=== PATIENT | female | born 1945 | race Caucasian/White ===

== ENCOUNTER 2019-02-08 08:57 | Inpatient (IN) | payer MEDICARE ==
[~2019-02-08] VITALS: Ht 165.1 cm; Wt 71.6 kg
[2019-02-08] VITALS (19 sets, daily range): BP systolic 105–139; BP diastolic 44–75
[~2019-02-08 08:57] MED LIST: ALPR-624 PO; CLOP75TA4 PO; GABA-532 PO; NAPR220C15 PO; QUET25TA PO; SIMV80TA2 PO; TRAM50TA2 PO; nitroPRUSSIDE in NS 100 ML IV PRN; phenylephrine inj 20 MG in normal saline 250ml IV soln 250 ML IV PRN
[2019-02-08] MEDS ORDERED: ringers solution, lacted 1,000 ML IV SCH ×2 (09:45→14:15)
[2019-02-08] MEDS ORDERED: cefazolin/dext.iso 2gm/100 ML IV ONE (09:45)
[2019-02-08] MEDS ORDERED: famotidine 20mg tablet PO ONE (09:45)
[2019-02-08 10:43] LABS: BASOPHILS # (AUTO) 0.1 X10'3 (0-0.2); BASOPHILS % (AUTO) 0.8 % (0-1); EOSINOPHILS # (AUTO) 0.2 X10'3 (0-0.9); EOSINOPHILS % (AUTO) 2.2 % (0-6); LYMPHOCYTES # (AUTO) 1.1 X10'3 (1.1-4.8); LYMPHOCYTES % (AUTO) 14.4 % (21-51); MEAN CORPUSCULAR HEMOGLOBIN 32.4 PG (27.0-31.0); MEAN CORPUSCULAR HGB CONC 33.7 g/dL (33.0-36.5); MEAN CORPUSCULAR VOLUME 96.2 FL (78-98); MEAN PLATELET VOLUME 7.4 FL (7.4-10.4); MONOCYTES # (AUTO) 0.8 X10'3 (0-0.9); MONOCYTES % (AUTO) 9.7 % (2-12); NEUTROPHILS # (AUTO) 5.8 X10'3 (1.8-7.7); NEUTROPHILS % (AUTO) 72.9 % (42-75); PRE OP HEMOGLOBIN 14.5 g/dL (12.0-16.0); PRE OP PLATELET COUNT 396 X10'3 (140-440); RED BLOOD COUNT 4.47 X10'6 (4.20-5.60); RED CELL DISTRIBUTION WIDTH 14.9 % (11.5-14.5)
[2019-02-08 10:45] LABS: CLARITY,URINE CLEAR (Clear); COLOR,URINE YELLOW (Yellow); GLUCOSE, URINE NEGATIVE (Neg); KETONES,URINE TRACE mg/dl (Neg); LEUKOCYTE ESTERASE ,URINE SMALL (Neg); NITRITES, URINE NEGATIVE (Neg); OCCULT BLOOD,URINE NEGATIVE (Neg); PH,URINE 5.5 (4.8-8.0); PROTEIN,URINE TRACE mg/dl (Neg); UROBILINOGEN,URINE 0.2 E.U/dL (0.2-1.0)
[2019-02-08 10:51] LABS: UA COLLECTION TYPE VOIDED
[2019-02-08 10:52] LABS: RBC,URINE NONE SEEN /HPF (0-2); WBC,URINE 0-4 /HPF (0-4)
[2019-02-08 10:53] LABS: BACTERIA,URINE FEW /HPF (Neg); MUCUS STRANDS FEW /LPF (Neg); SQUAMOUS EPITHELIAL CELL,UR FEW /LPF (FEW)
[2019-02-08 10:58] LABS: ALBUMIN 3.9 G/DL (3.4-5.0); ALBUMIN/GLOBULIN RATIO 1.1 (1.1-1.5); ALKALINE PHOSPHATASE 63 IU/L (46-116); BLOOD UREA NITROGEN 16 MG/DL (7-18); BUN/CREATININE RATIO 19.8 (6.6-38.0); CALCIUM 9.1 MG/DL (8.5-10.1); CHLORIDE 107 MMOL/L (99-107); CREATININE 0.81 MG/DL (0.40-0.90); PRE OP ALT 39 U/L (30-65); PRE OP ANION GAP 8 (8-16); PRE OP AST 25 U/L (10-37); PRE OP BILIRUB, TOTAL 0.5 MG/DL (0.0-1.0); PRE OP GLUCOSE 116 MG/DL (70-104); PRE OP POTASSIUM 4.2 MMOL/L (3.4-5.1); PRE OP SODIUM 145 MMOL/L (135-145); TOTAL CARBON DIOXIDE 30.5 MMOL/L (24-32); TOTAL PROTEIN 7.5 G/DL (6.4-8.2); eGFR 70 ML/MIN
[2019-02-08] MEDS ORDERED: heparin 10,000 units/1 ML INJ ONE (11:58)
[2019-02-08] MEDS ORDERED: hydrALAZINE 20mg/ml inj. IV ONE (12:00)
[2019-02-08] MEDS ORDERED: sevoflurane 250ml liquid IH ONE (12:00)
[2019-02-08] MEDS ORDERED: nitroGLYCERIN in D5W 50mg/250ml (Tridil) infusion IV ONE (12:00)
[2019-02-08] MEDS ORDERED: fentaNYL /PF 50mcg/ml 5ml ampule ONE (12:02)
[2019-02-08] MEDS ORDERED: LIDOcaine 2% (20mg/ml) 5ml vial ONE (12:03)
[2019-02-08] MEDS ORDERED: rocuronium 10mg/ml inj IV ONE (12:03)
[2019-02-08] MEDS ORDERED: dexamethasone sod phosphate 4mg/ml inj. ONE (13:39)
[2019-02-08] MEDS ORDERED: ondansetron/PF 4mg/2ml inj ONE (13:39)
[2019-02-08] MEDS ORDERED: etomidate 2mg/ml inj. ONE (13:39)
[2019-02-08] MEDS ORDERED: neostigmine methylsulfate 1 MG/ML 10ml vial ONE (13:39)
[2019-02-08] MEDS ORDERED: glycopyrrolate 0.2mg/ml inj ONE (13:39)
--- NOTE | 2019-02-08 14:00 | NUR ---
Received from OR via ICU BED, accompanied by Anesthesiologist YANICK and report given by Anesthesiolgist. PATIENT WITH 18G PIV IN LEFT UE RUNNING NIPRIDE AT THIS TIME. VSChao. GABY DELONG. LEFT NECK DRESSING WITH 2 SPOTS OF BLOOD BUT CONTAINED WITHIN DRESSING. SCDS DONNED WELL TOÑA HICKEY. LR RUNNING AT 100 WELL VIA PIV. ART LINE IN RIGHT WRIST PRESENT. Addendum: 02/08/19 at 1417 by Walt West RN, RN Amended: Links added.
[2019-02-08] MEDS ORDERED: ondansetron/PF 4mg/2ml inj IV PRN ×2 (14:10→14:15)
[2019-02-08] MEDS ORDERED: morphine 4 MG/ML inj SYRINge IV PRN (14:15)
[2019-02-08] MEDS ORDERED: HYDROmorphone inj. 0.5 MG/0.5 ML DISP.SYRIN IV PRN (14:15)
[2019-02-08] MEDS ORDERED: morphine 4 MG/ML inj SYRINge ONE (14:18)
[2019-02-08] MEDS ORDERED: morphine 4 MG/ML inj SYRINge IV ONE (14:18)
--- NOTE | 2019-02-08 15:00 | NUR ---
ALL CRITERIA FOR TRANSFER TO THE ICU HAS BEEN ACHIEVED. VSS. BED LOW, CALL LIGHT AND VS. SET IN PLACE. RN PRESENT TO ACCEPT CARE. PATIENT RESTING COMFORTABLY IN BED. 2 BAGS OF BELONGINGS SENT WITH PATIENT WELL GLASSES IN A CASE (MAROON COLORED CASE)AT BEDSIDE. DRESSINGS CDI. RYAN TEMPLETON PRESENT TO ACCEPT CARE. PATIENT VSS. C.O. HEADACHE UPON ARRIVAL. NEUROLOGICALLY INTACT. CARE ASSUMED BY RYAN TEMPLETON. Addendum: 02/08/19 at 1519 by Walt Scales - RYAN DAVIS Amended: Links added.
--- NOTE | 2019-02-08 15:00 | NUR ---
Patient to room on [facility] accompanied by Macie Godoy carotid incision site two small dots of blood on dressing, JOSEFINA drain in place with 20ml of output, neuro checked all facilities intact, patients only compliant is pain, Walt mediated her before leaving. Vital signs stable will continue to monitor
--- NOTE | 2019-02-08 15:13 | NUR ---
132 BLOOD GLUCOSE IN RR Addendum: 02/08/19 at 1519 by Walt West RN RN Amended: Links added.
[2019-02-08] MEDS: HYDROcodone/acetaminophen 5mg/325mg tablet PO PRN (16:25)
[2019-02-08] MEDS: morphine 2 MG/ML inj. syringe IV PRN ×2 (17:41→21:59)
--- NOTE | 2019-02-08 18:31 | NUR ---
Called Dr Chisholm [phone] to clarify orders and inform him of the patients 03/26 headache. He ordered 2mg morphine Q4 PRN, he also stated to D/C plavix I also obtained parameters for the nipride, he stated to keep the SBP between 120-150. No other new orders at this time
--- NOTE | 2019-02-08 18:34 | NUR ---
Problems reprioritized. Patient report given, questions answered & plan of care reviewed with Chiki DAVIS.
[2019-02-09] VITALS (21 sets, daily range): BP systolic 116–165; BP diastolic 61–97
[2019-02-09] MEDS: morphine 2 MG/ML inj. syringe IV PRN ×2 (02:27→08:38)
[2019-02-09 03:14] LABS: ALBUMIN 3.3 G/DL (3.4-5.0); ANION GAP 10 (8-16); BLOOD UREA NITROGEN 10 MG/DL (7-18); BUN/CREATININE RATIO 13.7 (6.6-38.0); CALCIUM 8.7 MG/DL (8.5-10.1); CHLORIDE 108 MMOL/L (99-107); CREATININE 0.73 MG/DL (0.40-0.90); GLUCOSE 150 MG/DL (70-104); POTASSIUM 4.1 MMOL/L (3.5-5.1); SODIUM 143 MMOL/L (135-145); eGFR 78 ML/MIN
[2019-02-09 03:27] LABS: BASOPHILS % (AUTO) 0.1 % (0-1); EOSINOPHILS % (AUTO) 0 % (0-6); HEMATOCRIT 38.1 % (35.0-45.0); HEMOGLOBIN 12.4 g/dl (12.0-16.0); LYMPHOCYTES # (AUTO) 0.6 X10'3 (1.1-4.8); LYMPHOCYTES % (AUTO) 3.8 % (21-51); MEAN CORPUSCULAR HEMOGLOBIN 31.6 PG (27.0-31.0); MEAN CORPUSCULAR HGB CONC 32.6 g/dL (33.0-36.5); MEAN PLATELET VOLUME 7.8 FL (7.4-10.4); MONOCYTES % (AUTO) 6.8 % (2-12); NEUTROPHILS # (AUTO) 13.2 X10'3 (1.8-7.7); NEUTROPHILS % (AUTO) 89.3 % (42-75); PLATELET COUNT 426 X10'3 (140-440); RED BLOOD COUNT 3.93 X10'6 (4.20-5.60); RED CELL DISTRIBUTION WIDTH 14.7 % (11.5-14.5); WHITE BLOOD COUNT 14.8 X10'3 (4.5-11.0)
--- NOTE | 2019-02-09 06:54 | NUR ---
Patient in room CICU 2007. I have received report from Chiki DAVIS and had the opportunity to ask questions and assume patient care.
--- NOTE | 2019-02-09 11:47 | NUR ---
RIGHT RADIAL ARTERIAL LINE DC'D, PRESSURE HELD FOR 5 MINUTES AND DRESSING APPLIED. JOSEFINA DRAIN REMOVED FROM LEFT NECK AND DRESSING APPLIED. PER DR. HEATH'S ORDER.
[2019-02-09] MEDS: HYDROcodone/acetaminophen 5mg/325mg tablet PO PRN ×2 (13:34→22:58)
--- NOTE | 2019-02-09 18:30 | NUR ---
Patient in room CICU 2007. I have received report from Ben DAVIS and had the opportunity to ask questions and assume patient care.
--- NOTE | 2019-02-09 18:33 | NUR ---
Problems reprioritized. Patient report given, questions answered & plan of care reviewed with JOSEPHINE DAVIS.
--- NOTE | 2019-02-09 20:49 | NUR ---
Pt arrived to room 340B via W/C, pt is mobile and talking on the phone. Addendum: 02/09/19 at 2049 by Sheela Zamarripa RN Amended: Links added.
--- NOTE | 2019-02-09 21:15 | NUR ---
Pt outside of room with pants half way off attempting to put on alexandere, whiting, upset that she's getting a male roommate and that her will also be very upset. It was explained to pt that there is no male patient staying, and that the man she's upset about is of new roommate who will be going home, pt stated that she's not racist. Nurse talked to pt to help clear up misunderstanding. Addendum: 02/10/19 at 0425 by Sheela Zamarripa RN Amended: Links added.
--- NOTE | 2019-02-09 22:30 | NUR ---
Into check on patient, pt stated she took out her IV stating "I just couldn't handle it anymore so I just took it out". Pt was educated on having RN take care of her IV and that if she needs anything she needs to let someone know. Pt upset at education. Addendum: 02/10/19 at 0417 by Sheela Zamarripa RN Amended: Links added.
[2019-02-10] VITALS: BP 153/76
--- NOTE | 2019-02-10 04:15 | NUR ---
Cement Mixer told nurse that pt has refused labs and is upset, yelling at her stating, "I don't know what you're doing, I've never had this happen to me", Pt wanting to be left alone, but stating "well I'm already up now" walking in the hanks following the chief clinical officer. Addendum: 02/10/19 at 0425 by Sheela Zamarripa RN Amended: Links added.
[2019-02-10 04:41] LABS: BASOPHILS # (AUTO) 0.1 X10'3 (0-0.2); BASOPHILS % (AUTO) 0.5 % (0-1); EOSINOPHILS # (AUTO) 0.1 X10'3 (0-0.9); EOSINOPHILS % (AUTO) 1.1 % (0-6); HEMATOCRIT 38.8 % (35.0-45.0); HEMOGLOBIN 12.8 g/dl (12.0-16.0); LYMPHOCYTES # (AUTO) 1.9 X10'3 (1.1-4.8); LYMPHOCYTES % (AUTO) 18.9 % (21-51); MEAN CORPUSCULAR HEMOGLOBIN 31.9 PG (27.0-31.0); MEAN CORPUSCULAR VOLUME 96.6 FL (78-98); MEAN PLATELET VOLUME 7.4 FL (7.4-10.4); MONOCYTES # (AUTO) 0.9 X10'3 (0-0.9); MONOCYTES % (AUTO) 9.3 % (2-12); NEUTROPHILS # (AUTO) 7.1 X10'3 (1.8-7.7); NEUTROPHILS % (AUTO) 70.2 % (42-75); PLATELET COUNT 400 X10'3 (140-440); RED BLOOD COUNT 4.02 X10'6 (4.20-5.60); RED CELL DISTRIBUTION WIDTH 14.6 % (11.5-14.5); WHITE BLOOD COUNT 10.1 X10'3 (4.5-11.0)
--- NOTE | 2019-02-10 06:18 | NUR ---
Patient in room [facility] 340. I have received report from RYAN Coker and had the opportunity to ask questions and assume patient care.
--- NOTE | 2019-02-10 06:18 | NUR ---
Problems reprioritized. Patient report given, questions answered & plan of care reviewed with Ana Rosa DAVIS. Addendum: 02/10/19 at 0619 by Sheela Zamarripa RN Amended: Links added.
[2019-02-10 07:00] VITALS: BP 179/98
[2019-02-10] MEDS ORDERED: aspirin 81mg tablet.DR PO SCH (08:00)
[2019-02-10 08:45] VITALS: BP 167/93
[2019-02-10] MEDS: HYDROcodone/acetaminophen 5mg/325mg tablet PO PRN (09:19)
[2019-02-10] MEDS ORDERED: hyDRALAzine 10mg tablet PO PRN (10:15)
[2019-02-10 11:30] VITALS: BP 144/71
== END 2019-02-10 15:45 | disposition home or self-care (01) | DRG 37 ==
LOC: PAS IN 08:57 → EDSTATUS 11:45 → CICU 2S 15:02 → SUR 3N 02-09 21:05
PROVIDERS: ADMIT Surgery; ATTEND Surgery
PROC: 03UN0KZ Supplement Left External Carotid Artery with Nonautologous Tissue Substitute, Open Approach (ICD-10-PCS; 2019-02-08)
PROC: 03CN0Z6 (ICD-10-PCS; principal; 2019-02-08 12:00)
DX: I65.22 Occlusion and stenosis of left carotid artery (principal); I63.9 Cerebral infarction, unspecified; E78.5 Hyperlipidemia, unspecified; G83.24 Monoplegia of upper limb affecting left nondominant side; R47.01 Aphasia; F41.9 Anxiety disorder, unspecified; G89.29 Other chronic pain; M16.10 Unilateral primary osteoarthritis, unspecified hip; F17.200 Nicotine dependence, unspecified, uncomplicated; Z82.49 Family history of ischemic heart disease and other diseases of the circulatory system; Z79.899 Other long term (current) drug therapy
CPT/HCPCS: 36415; 71045; 80048; 80053; 81001; 82948; 85025; 85610; 85730; 86885; 86900; 86901; 86920; 87081; 87088; 95813; 95816; A4618; A7000; C1768; G0378; J0360; J1100; J1170; J1644; J2001; J2270; J2370; J2405; J2710; J3010; J3490; J7040; J7050; J7120

== ENCOUNTER 2021-03-31 10:47 | Inpatient (IN) | payer MEDICARE ==
[2021-03-31] VITALS (16 sets, daily range): BP systolic 106–151; BP diastolic 69–98
[~2021-03-31] VITALS: Ht 165.1 cm; Wt 61.8 kg
[~2021-03-31 10:47] MED LIST changes: +ASPI-529 PO; +ATOR40TA PO; -CLOP75TA4 PO; +LEVO75TA PO; -NAPR220C15 PO; -SIMV80TA2 PO; +VANCOMYCIN INJ 1000 MG in NORMAL SALINE 250ml IV.SOLN IV ONE; +acetaminophen 325mg tablet PO ONE; +cefazolin/dext.iso 2gm/100ml IV ONE; +celeCOXIB 100mg capsule PO ONE; +famotidine 20mg tablet PO ONE; +gabapentin 300mg capsule PO ONE; +metoclopramide 5 mg/ml inj IV ONE; -nitroPRUSSIDE in NS 100 ML IV PRN; +oxyCODONE SR 10mg (sust. release) tab -2 tabs (20mg) PO ONE; -phenylephrine inj 20 MG in normal saline 250ml IV soln 250 ML IV PRN; +tranexamic acid 1gm/0.7% sal. 100 ML IV ONE
[2021-03-31] MEDS ORDERED: oxyCODONE SR 10mg (sust. release) tab PO ONE (11:50)
[2021-03-31] MEDS ORDERED: magnesium hydroxide 30ml (MOM) UD suspension PO PRN (12:00)
[2021-03-31] MEDS ORDERED: HYDROmorphone inj. 0.5 MG/0.5 ML DISP.SYRIN IV PRN (12:00)
[2021-03-31] MEDS ORDERED: ALPRAZolam 0.5mg tablet PO PRN (12:00)
[2021-03-31] MEDS ORDERED: HYDROcodone/acetaminophen 10/325mg tab PO PRN (12:00)
[2021-03-31] MEDS: potassium cl 20mEq in 1/2 NS 1,000 ML IV SCH ×2 (12:00→21:04)
[2021-03-31] MEDS ORDERED: ondansetron/PF 4mg/2ml inj IV PRN ×2 (12:00→14:50)
[2021-03-31] MEDS ORDERED: diphenhydrAMINE 25mg capsule PO PRN ×2 (12:00)
[2021-03-31] MEDS ORDERED: bisacodyl 10mg suppository rectal RC PRN (12:00)
[2021-03-31] MEDS ORDERED: tranexamic acid inj. 600 MG in normal saline 100ml IV soln 100 ML IV ONE ×2 (12:00→19:15)
[2021-03-31] MEDS ORDERED: acetaminophen 325mg tablet PO PRN (12:00)
[2021-03-31] MEDS: gabapentin 300mg capsule PO SCH ×2 (12:15→20:45)
[2021-03-31] MEDS: ringers solution, lacted 1,000 ML IV SCH ×2 (12:17→17:39)
[2021-03-31] MEDS ORDERED: midazolam 1 mg/ML 2ml injection IV ONE ×2 (13:25→14:10)
[2021-03-31] MEDS ORDERED: epiNEPHrine 1 mg/ml inj ONE (14:25)
[2021-03-31] MEDS ORDERED: ketorolac trometh. 30mg/ml inj. ONE (14:25)
[2021-03-31] MEDS ORDERED: ROPIVAcaine 0.5% (5mg/ml) 30ml vial ONE (14:25)
[2021-03-31] MEDS ORDERED: vancomycin 1,000mg inj ONE (14:26)
[2021-03-31] MEDS ORDERED: cloNIDine hcl/PF 100mcg/ml inj ONE (14:26)
[2021-03-31] MEDS ORDERED: ringers solution, lacted 1,000 ML IV SCH (14:50)
[2021-03-31] MEDS ORDERED: HYDROmorphone/PF 0.2 MG/ML SYRINGE IV PRN (14:50)
[2021-03-31] MEDS ORDERED: morphine 2 MG/ML inj. syringe IV PRN (14:50)
[2021-03-31] MEDS ORDERED: sevoflurane 250ml liquid IH ONE (14:50)
[2021-03-31] MEDS ORDERED: fentaNYL/PF 50MCG/1 ML 2ML syringe ONE (14:52)
[2021-03-31] MEDS ORDERED: midazolam 1 mg/ML 2ml injection ONE (14:52)
[2021-03-31] MEDS ORDERED: propofol inj 20 ML IV ONE (15:43)
[2021-03-31] MEDS ORDERED: LIDOcaine 1%/PF 5ML 10 MG/ML VIAL ONE ×2 (15:43)
[2021-03-31] MEDS ORDERED: dexamethasone sod phosphate 4mg/ml inj. ONE (15:50)
[2021-03-31] MEDS ORDERED: diphenhydrAMINE 50 mg/ml inj ONE (15:50)
[2021-03-31] MEDS ORDERED: ondansetron/PF 4mg/2ml inj ONE (15:50)
[2021-03-31] MEDS ORDERED: ceFAZolin/D5W- 1GM premix 50 ML IV SCH (16:00)
--- NOTE | 2021-03-31 16:06 | NUR ---
ASSUME CARE PT AWAKE DENIES PAIN VSS DRESSING TO LEFT KNEE CDI, WITH YOJANA DRAIN IN PLACE. KNEE BRACE TO KNEE INTACT WITH ICE TO SURGERY SITE. IV TO L ARM Addendum: 03/31/21 at 1628 by Annika Hernandez RN Amended: Links added.
--- NOTE | 2021-03-31 16:33 | NUR ---
PT MORE AWAKE ALERT VSS NO DISTRESS BRIDGETTE POS SPINAL LEVEL L3 Addendum: 03/31/21 at 1634 by Annika Hernandez RN Amended: Links added.
--- NOTE | 2021-03-31 16:45 | NUR ---
Patient in room [facility] 348. I have received report from Annika Dutton RN and had the opportunity to ask questions and assume patient care.
--- NOTE | 2021-03-31 17:00 | NUR ---
Patient made familiar with room at time she made it to the floor, Patient is alert and oriented complained of being cold but we gave two warm blankets before she was set up on vitals, maria guadalupe dressing clean dry and intact. Patient has no feeling from waist down. Call light was made accessible at this time and patient family was in room at this time. Patient doing well.
[2021-03-31] MEDS ORDERED: ALPRAZolam 0.25mg tablet PO PRN (18:18)
--- NOTE | 2021-03-31 18:42 | NUR ---
I have received report from RYAN Meehan and had the opportunity to ask questions and assume patient care.
--- NOTE | 2021-03-31 18:49 | NUR ---
Problems reprioritized. Patient report given, questions answered & plan of care reviewed with Marcio DAVIS.
--- NOTE | 2021-03-31 19:25 | NUR ---
Tranaxemic was due at 1900 Pharmacy put in the wrong time for 1200. I scanned the 1200 medication because that was the one that was showing on eMAR at the time. Pharmacy came up with a new label after I scanned the medication but we decided not to scan the new label in order to make it look like the medication was not given twice. I put IV infusing once the correct time showed up for the medication
[2021-03-31] MEDS ORDERED: vancomycin/NS 1 GM ADD-VANTAGE 250 ML IV SCH (20:00)
[2021-03-31] MEDS: sennosides 8.6mg tablet PO SCH (20:45)
[2021-03-31] MEDS: aspirin 81mg, enteric-coated 1 TAB TABLET.DR PO SCH (20:45)
[2021-03-31] MEDS: ascorbic acid 500mg tablet PO SCH (20:46)
[2021-03-31] MEDS: levoTHYROXINE 25mcg tablet PO SCH (20:46)
[2021-03-31] MEDS: QUEtiapine 25mg tablet PO SCH (20:47)
[2021-03-31] MEDS: atorvastatin 20mg tablet PO SCH (20:47)
[2021-03-31] MEDS: HYDROcodone/acetaminophen 10/325mg tab PO PRN (20:51)
[2021-04-01] VITALS: BP 114/76
[2021-04-01] MEDS: ceFAZolin/D5W- 1GM premix 50 ML IV SCH ×2 (00:19→09:42)
[2021-04-01 04:00] VITALS: BP 113/69
[2021-04-01] MEDS: potassium cl 20mEq in 1/2 NS 1,000 ML IV SCH ×2 (04:00→08:31)
[2021-04-01] MEDS: HYDROmorphone 1 mg/ml syringe IV PRN ×2 (05:06→09:46)
--- NOTE | 2021-04-01 06:02 | NUR ---
Problems reprioritized. Patient report given, questions answered & plan of care reviewed with RYAN Ford.
[2021-04-01 06:36] LABS: BASOPHILS % (AUTO) 0.2 % (0-1); EOSINOPHILS % (AUTO) 0 % (0-6); HEMATOCRIT 32.7 % (35.0-45.0); HEMOGLOBIN 10.5 g/dl (12.0-16.0); LYMPHOCYTES # (AUTO) 0.5 X10'3 (1.1-4.8); MEAN CORPUSCULAR HEMOGLOBIN 30.6 PG (27.0-31.0); MEAN CORPUSCULAR VOLUME 95.5 FL (78-98); MEAN PLATELET VOLUME 7.3 FL (7.4-10.4); MONOCYTES # (AUTO) 1.2 X10'3 (0-0.9); MONOCYTES % (AUTO) 9.2 % (2-12); NEUTROPHILS # (AUTO) 11.5 X10'3 (1.8-7.7); NEUTROPHILS % (AUTO) 86.6 % (42-75); PLATELET COUNT 590 X10'3 (140-440); RED BLOOD COUNT 3.43 X10'6 (4.20-5.60); RED CELL DISTRIBUTION WIDTH 14.5 % (11.5-14.5); WHITE BLOOD COUNT 13.3 X10'3 (4.5-11.0)
--- NOTE | 2021-04-01 06:39 | NUR ---
Patient in room [facility] 348. I have received report from Marcio DAVIS and had the opportunity to ask questions and assume patient care.
[2021-04-01 07:05] LABS: ANION GAP 6 (8-16); CHLORIDE 109 MMOL/L (99-107); POTASSIUM 4.8 MMOL/L (3.5-5.1); SODIUM 142 MMOL/L (135-145); TOTAL CARBON DIOXIDE 27.2 MMOL/L (24-32)
[2021-04-01 08:00] VITALS: BP 147/86
[2021-04-01] MEDS: HYDROcodone/acetaminophen 10/325mg tab PO PRN (08:29)
[2021-04-01] MEDS: multivitamins, therapeutics tablet PO SCH (08:30)
[2021-04-01] MEDS: gabapentin 300mg capsule PO SCH ×3 (08:30→20:13)
[2021-04-01] MEDS: ascorbic acid 500mg tablet PO SCH ×2 (08:30→20:12)
--- NOTE | 2021-04-01 10:55 | NUR ---
Joint Surgery Consult: Pt s/p L hip surgery this admit PO regular diet pending. Noted pt confused this AM per surgeon note. Written high protein ed w/ RD contact information placed in pt chart. Addendum: 04/01/21 at [address] Amended: Links added.
[2021-04-01 11:00] VITALS: BP 121/66
[2021-04-01] MEDS: oxyCODONE/APAP 5-325mg tablet PO PRN ×3 (12:49→21:13)
[2021-04-01 18:00] VITALS: BP 139/75
--- NOTE | 2021-04-01 18:30 | NUR ---
Problems reprioritized. Patient report given, questions answered & plan of care reviewed with Marcio DAVIS.
--- NOTE | 2021-04-01 18:35 | NUR ---
I have received report from RYAN Ford and had the opportunity to ask questions and assume patient care.
[2021-04-01] MEDS: celeCOXIB 100mg capsule PO SCH (20:09)
[2021-04-01] MEDS: atorvastatin 20mg tablet PO SCH (20:10)
[2021-04-01] MEDS: aspirin 81mg, enteric-coated 1 TAB TABLET.DR PO SCH (20:11)
[2021-04-01] MEDS: sennosides 8.6mg tablet PO SCH (20:12)
[2021-04-01] MEDS: levoTHYROXINE 25mcg tablet PO SCH (20:12)
[2021-04-01] MEDS: QUEtiapine 25mg tablet PO SCH (20:13)
[2021-04-02] VITALS: BP 125/72
[2021-04-02] MEDS: oxyCODONE/APAP 5-325mg tablet PO PRN ×2 (05:56→10:44)
[2021-04-02 06:28] LABS: BASOPHILS % (AUTO) 0.3 % (0-1); EOSINOPHILS # (AUTO) 0.2 X10'3 (0-0.9); EOSINOPHILS % (AUTO) 2.1 % (0-6); HEMATOCRIT 29.8 % (35.0-45.0); LYMPHOCYTES # (AUTO) 1.3 X10'3 (1.1-4.8); LYMPHOCYTES % (AUTO) 16.2 % (21-51); MEAN CORPUSCULAR HEMOGLOBIN 31.9 PG (27.0-31.0); MEAN CORPUSCULAR HGB CONC 33.3 g/dL (33.0-36.5); MEAN CORPUSCULAR VOLUME 95.7 FL (78-98); MEAN PLATELET VOLUME 7.2 FL (7.4-10.4); MONOCYTES # (AUTO) 0.8 X10'3 (0-0.9); MONOCYTES % (AUTO) 10.7 % (2-12); NEUTROPHILS # (AUTO) 5.5 X10'3 (1.8-7.7); NEUTROPHILS % (AUTO) 70.7 % (42-75); PLATELET COUNT 479 X10'3 (140-440); RED BLOOD COUNT 3.12 X10'6 (4.20-5.60); RED CELL DISTRIBUTION WIDTH 14.6 % (11.5-14.5); WHITE BLOOD COUNT 7.8 X10'3 (4.5-11.0)
--- NOTE | 2021-04-02 06:34 | NUR ---
Problems reprioritized. Patient report given, questions answered & plan of care reviewed with RYAN Palafox.
--- NOTE | 2021-04-02 06:45 | NUR ---
Patient in room [facility] 348. I have received report from RYAN Buckley and had the opportunity to ask questions and assume patient care.
[2021-04-02 07:00] VITALS: BP 149/82
[2021-04-02] MEDS: celeCOXIB 100mg capsule PO SCH (08:45)
[2021-04-02] MEDS: gabapentin 300mg capsule PO SCH ×2 (08:45→13:45)
[2021-04-02] MEDS: ascorbic acid 500mg tablet PO SCH (08:45)
[2021-04-02] MEDS: multivitamins, therapeutics tablet PO SCH (08:45)
[2021-04-02 12:00] VITALS: BP 147/77
--- NOTE | 2021-04-02 14:30 | NUR ---
Pt discharged to home, with all belongings, in private vehicle accompanied by . Discharge instructions and medications reviewed. No new prescriptions ordered at this time. Pt instructed to follow up with Dr Rivera at scheduled appointment, and to watch for signs/symptoms of a blood clot and infection. Pt provided with knee immobilizer with instructions to wear for 3 months, as directed by Dr Rivera. Pt stated understanding and willingness to comply with discharge instructions. IV DC'd, cannula intact. Pt escorted to front lobby via wheelchair by PCT.
== END 2021-04-02 14:25 | disposition home or self-care (01) | DRG 470 ==
LOC: PAS 10:47 → SUR 3N 15:00 → UNDOADMIN 15:00 → PAS 18:00 → SUR 3N 18:00 → UNDOADMOB 04-02 05:25 → SUR 3N 04-02 05:25 → PAS 04-02 05:25 → SUR 3N 04-02 05:25 → UNDOADMIN 04-02 09:30
PROVIDERS: ADMIT Orthopaedic Surgery; ATTEND Orthopaedic Surgery
PROC: 0SRB06Z Replacement of Left Hip Joint with Oxidized Zirconium on Polyethylene Synthetic Substitute, Open Approach (ICD-10-PCS; principal; 2021-04-02)
DX: M16.12 Unilateral primary osteoarthritis, left hip (principal); D62 Acute posthemorrhagic anemia; Z79.899 Other long term (current) drug therapy
CPT/HCPCS: 36415; 72170; 80051; 82948; 84443; 85025; 86885; 86900; 86901; 93005; 97110; 97116; 97530; 97535; A7000; C1776; G0378; J0171; J0690; J0735; J1100; J1170; J1200; J1885; J2250; J2405; J2704; J2765; J2795; J3010; J3370; J3480; J7120

== ENCOUNTER 2021-04-05 10:26 | Emergency (ER) | payer MEDICARE ==
[~2021-04-05] VITALS: Ht 154.9 cm; Wt 140.0 kg
[~2021-04-05 10:26] MED LIST changes: -VANCOMYCIN INJ 1000 MG in NORMAL SALINE 250ml IV.SOLN IV ONE; -acetaminophen 325mg tablet PO ONE; -cefazolin/dext.iso 2gm/100ml IV ONE; -celeCOXIB 100mg capsule PO ONE; -famotidine 20mg tablet PO ONE; -gabapentin 300mg capsule PO ONE; -metoclopramide 5 mg/ml inj IV ONE; -oxyCODONE SR 10mg (sust. release) tab -2 tabs (20mg) PO ONE; -tranexamic acid 1gm/0.7% sal. 100 ML IV ONE
[2021-04-05] MEDS ORDERED: normal saline 1000ML IV soln IV ONE (10:40)
[2021-04-05 11:35] LABS: EOSINOPHILS # (AUTO) 0.3 X10'3 (0-0.9); HEMOGLOBIN 11.2 g/dl (12.0-16.0); MONOCYTES # (AUTO) 1.2 X10'3 (0-0.9); RED BLOOD COUNT 3.61 X10'6 (4.20-5.60)
[2021-04-05 11:37] LABS: BASOPHILS % (AUTO) 0.2 % (0-1); EOSINOPHILS % (AUTO) 2.6 % (0-6); HEMATOCRIT 34.5 % (35.0-45.0); LYMPHOCYTES # (AUTO) 0.8 X10'3 (1.1-4.8); LYMPHOCYTES % (AUTO) 6.5 % (21-51); MEAN CORPUSCULAR HEMOGLOBIN 30.9 PG (27.0-31.0); MEAN CORPUSCULAR HGB CONC 32.4 g/dL (33.0-36.5); MEAN CORPUSCULAR VOLUME 95.6 FL (78-98); MEAN PLATELET VOLUME 6.9 FL (7.4-10.4); MONOCYTES % (AUTO) 10.4 % (2-12); NEUTROPHILS # (AUTO) 9.5 X10'3 (1.8-7.7); NEUTROPHILS % (AUTO) 80.3 % (42-75); PLATELET COUNT 697 X10'3 (140-440); RED CELL DISTRIBUTION WIDTH 14.8 % (11.5-14.5); WHITE BLOOD COUNT 11.8 X10'3 (4.5-11.0)
[2021-04-05 11:51] LABS: ALANINE AMINOTRANSFERASE 34 U/L (12-78); ALBUMIN 2.7 G/DL (3.4-5.0); ALBUMIN/GLOBULIN RATIO 0.8 (1.1-1.5); ALKALINE PHOSPHATASE 111 IU/L (46-116); ANION GAP 5 (8-16); ASPARTATE AMINO TRANSFERASE 31 U/L (10-37); BILIRUBIN,TOTAL 0.9 MG/DL (0.1-1.0); BLOOD UREA NITROGEN 13 MG/DL (7-18); BUN/CREATININE RATIO 17.3 (6.6-38.0); CALCIUM 8.5 MG/DL (8.5-10.1); CHLORIDE 102 MMOL/L (99-107); CREATININE 0.75 MG/DL (0.40-0.90); GLUCOSE 130 MG/DL (70-104); POTASSIUM 4.9 MMOL/L (3.5-5.1); SODIUM 140 MMOL/L (135-145); TOTAL CARBON DIOXIDE 33.2 MMOL/L (24-32); TOTAL PROTEIN 6.3 G/DL (6.4-8.2); eGFR 76 ML/MIN
[2021-04-05 12:27] LABS: HYPOCHROMASIA 1+; POLYCHROMASIA 1+; STOMATOCYTES FEW
[2021-04-05 12:28] LABS: PLATELET ESTIMATE INCREASED
--- NOTE | 2021-04-05 14:30 | NUR ---
Brought in by EMS from home. S/P L total hip 5 days ago. Taking norco at home pain. Pt is confused. She does follow commands. Alert to self only.
[2021-04-05] MEDS ORDERED: iohexol 350MG/ML 100ml bottle IV ONE (14:38)
[2021-04-05 14:43] LABS: CLARITY,URINE SLIGHTLY CLOUDY (Clear); COLOR,URINE YELLOW (Yellow); PH,URINE 5.5 (4.8-8.0); UA COLLECTION TYPE STRAIGHT CATH
[2021-04-05 14:44] LABS: GLUCOSE, URINE NEGATIVE (Neg); KETONES,URINE TRACE mg/dl (Neg); LEUKOCYTE ESTERASE ,URINE NEGATIVE (Neg); NITRITES, URINE NEGATIVE (Neg); OCCULT BLOOD,URINE NEGATIVE (Neg); PROTEIN,URINE NEGATIVE (Neg); UROBILINOGEN,URINE 0.2 E.U/dL (0.2-1.0)
--- NOTE | 2021-04-05 14:45 | NUR ---
Tele Neuro visit was completed.
[2021-04-05 14:52] LABS: HYALINE CASTS 0-3 /LPF (NEGATIVE); MUCUS STRANDS MANY /LPF (Neg); SQUAMOUS EPITHELIAL CELL,UR FEW /LPF (FEW)
[2021-04-05 14:54] LABS: BACTERIA,URINE NONE SEEN /HPF (Neg); RBC,URINE 0-2 /HPF (0-2); RENAL CELLS, URINE FEW /HPF; TRANSITIONAL EPI CELLS,URINE FEW /HPF; WBC,URINE 0-4 /HPF (0-4)
[2021-04-05] MEDS: dextrose 5%-1/2 normal saline 1,000 ML IV SCH (15:25)
[2021-04-05] MEDS ORDERED: LEVO50TA8 PO (15:25)
[2021-04-05] MEDS ORDERED: acetaminophen 325mg tablet PO PRN ×2 (15:25)
[2021-04-05] MEDS ORDERED: magnesium hydroxide 30ml (MOM) UD suspension PO PRN (15:25)
[2021-04-05] MEDS ORDERED: morphine 2 MG/ML inj. syringe IV PRN ×2 (15:25)
[2021-04-05] MEDS ORDERED: ALPR0.252 PO (15:25)
[2021-04-05] MEDS ORDERED: mag hydrox/Alum hydrox/simeth 30ml oral suspension PO PRN (15:25)
[2021-04-05] MEDS ORDERED: ondansetron/PF 4mg/2ml inj IV PRN (15:25)
[2021-04-05] MEDS ORDERED: DULO30CA52 PO (15:34)
[2021-04-05] MEDS ORDERED: CELE-85 PO (15:34)
[2021-04-05] MEDS ORDERED: acetaminophen 1,000mg/100ml IV 100 ML IV STA (15:48)
--- NOTE | 2021-04-05 16:32 | NUR ---
Blakely removed due to aggitation. Purwick suction placed to catch urine.
[2021-04-05] MEDS ORDERED: ALPRAZolam 0.25mg tablet PO PRN (17:30)
[2021-04-05] MEDS: docusate sod 100mg capsule PO SCH (20:00)
--- NOTE | 2021-04-05 20:27 | NUR ---
ASSUMED CARE OF PT. PT PLACED IN BED 1.
[2021-04-05] MEDS ORDERED: gabapentin 300mg capsule PO SCH (21:00)
[2021-04-05] MEDS ORDERED: atorvastatin 20mg tablet PO SCH (21:00)
[2021-04-05] MEDS: celeCOXIB 100mg capsule PO SCH (21:44)
[2021-04-06] MEDS: dextrose 5%-1/2 normal saline 1,000 ML IV SCH ×2 (01:25→14:34)
--- NOTE | 2021-04-06 02:20 | NUR ---
PT'S MENTATION HAS IMPROVED. SHE IS AWAKE, ALERT AND ORIENTED X4. SHE DENIES ANY COMPLAINTS.
[2021-04-06] MEDS ORDERED: levoTHYROXINE 25mcg tablet PO SCH (08:00)
[2021-04-06] MEDS ORDERED: enoxaparin 40mg/0.4ml syringe SUBCUT SCH (08:00)
[2021-04-06] MEDS ORDERED: duloxetine 30mg CAPSULE.DR PO SCH (08:00)
[2021-04-06] MEDS: docusate sod 100mg capsule PO SCH (08:19)
[2021-04-06] MEDS: celeCOXIB 100mg capsule PO SCH (08:19)
[2021-04-06 08:54] LABS: BASOPHILS % (AUTO) 0.2 % (0-1); EOSINOPHILS # (AUTO) 0.4 X10'3 (0-0.9); EOSINOPHILS % (AUTO) 3.2 % (0-6); HEMATOCRIT 35.5 % (35.0-45.0); HEMOGLOBIN 11.7 g/dl (12.0-16.0); LYMPHOCYTES # (AUTO) 0.6 X10'3 (1.1-4.8); LYMPHOCYTES % (AUTO) 5.4 % (21-51); MEAN CORPUSCULAR HEMOGLOBIN 31.5 PG (27.0-31.0); MEAN CORPUSCULAR HGB CONC 33.1 g/dL (33.0-36.5); MEAN CORPUSCULAR VOLUME 95.2 FL (78-98); MEAN PLATELET VOLUME 6.8 FL (7.4-10.4); MONOCYTES # (AUTO) 1.2 X10'3 (0-0.9); NEUTROPHILS # (AUTO) 9.8 X10'3 (1.8-7.7); NEUTROPHILS % (AUTO) 81.2 % (42-75); PLATELET COUNT 599 X10'3 (140-440); RED BLOOD COUNT 3.73 X10'6 (4.20-5.60); RED CELL DISTRIBUTION WIDTH 14.8 % (11.5-14.5); WHITE BLOOD COUNT 12.1 X10'3 (4.5-11.0)
[2021-04-06 09:28] LABS: ALANINE AMINOTRANSFERASE 28 U/L (12-78); ALBUMIN 2.5 G/DL (3.4-5.0); ALBUMIN/GLOBULIN RATIO 0.7 (1.1-1.5); ALKALINE PHOSPHATASE 98 IU/L (46-116); ANION GAP 7 (8-16); ASPARTATE AMINO TRANSFERASE 29 U/L (10-37); BLOOD UREA NITROGEN 9 MG/DL (7-18); CALCIUM 8.3 MG/DL (8.5-10.1); CHLORIDE 102 MMOL/L (99-107); GLUCOSE 134 MG/DL (70-104); POTASSIUM 4.3 MMOL/L (3.5-5.1); SODIUM 140 MMOL/L (135-145); TOTAL CARBON DIOXIDE 30.7 MMOL/L (24-32); TOTAL PROTEIN 6.1 G/DL (6.4-8.2); eGFR > 90 ML/MIN
[2021-04-06 10:41] LABS: PLATELET ESTIMATE INCREASED; TOTAL CELLS COUNTED 100
[2021-04-06 10:42] LABS: HYPOCHROMASIA 1+; POLYCHROMASIA FEW; TOXIC GRANULATION 1+
[2021-04-06 10:43] LABS: HYPERSEGMENTED NEUTROPHILS FEW; TOXIC VACUOLATION FEW
--- NOTE | 2021-04-06 11:22 | NUR ---
Dr Dick notified of decreased oxygen saturation, orders noted in the computer.
[2021-04-06] MEDS ORDERED: furosemide 20 MG/2 ML vial IV ONE (11:25)
[2021-04-06] MEDS ORDERED: FURO-150 PO (11:58)
[2021-04-06] MEDS ORDERED: iohexol 350MG/ML 100ml bottle IV ONE (12:04)
[2021-04-06 15:30] VITALS: BP 165/90
--- NOTE | 2021-04-06 15:45 | NUR ---
Patient requires home O2 for discharge, patient does not have qualifing diagnosis for oxygen use, spoke with daughter Anne, agreeable to pay the cost of 100.00 a month for home O2, notified MD and ER staff
[2021-04-06] MEDS ORDERED: APIX5TAB3 PO (17:27)
== END 2021-04-06 17:47 | disposition home or self-care (01) ==
LOC: ER 10:27 → ED HOLD 15:25 → UNDOADMIN 15:25 → UNDODISIN 04-06 17:21
DX: G92 Toxic encephalopathy (principal); J96.01 Acute respiratory failure with hypoxia; J90 Pleural effusion, not elsewhere classified; I50.9 Heart failure, unspecified; E86.0 Dehydration; Z96.642 Presence of left artificial hip joint
CPT/HCPCS: 36415; 70450; 70496; 70498; 71045; 71275; 80053; 81001; 82140; 83605; 83880; 84145; 84484; 85007; 85008; 85025; 87040; 93005; 96361; 96365; 96366; 96372; 96375; 99285; J0131; J1940; J7030; Q9967; G0378; J1650

== ENCOUNTER 2021-05-12 11:29 | Inpatient (IN) | payer MEDICARE ==
[~2021-05-12] VITALS: Ht 165.1 cm; Wt 61.0 kg
[~2021-05-12 11:29] MED LIST changes: -ALPR-624 PO; +ALPR0.252 PO; +APIX5TAB3 PO; -ASPI-529 PO; +CELE-85 PO; +DULO30CA52 PO; +LEVO50TA8 PO; -LEVO75TA PO; -QUET25TA PO; -TRAM50TA2 PO
[2021-05-12] MEDS ORDERED: LIDOcaine 2% 10ml TOPICAL JELLY (Urojet) TP ONE (13:50)
--- NOTE | 2021-05-12 14:22 | NUR ---
DR. KRAUSE CALLED TO INFORM US OF LUNG NODULES AND RIGHT LOBE CONSOLIDATION, POSS PNEU. INFORMED HIM PT HAS HX OF THROAT AND TONGUE CA.
[2021-05-12] MEDS ORDERED: morphine 4 MG/ML inj SYRINge IV ONE (14:25)
[2021-05-12 14:28] LABS: BASOPHILS # (AUTO) 0.1 X10'3 (0-0.2); BASOPHILS % (AUTO) 0.6 % (0-1); EOSINOPHILS # (AUTO) 0.1 X10'3 (0-0.9); HEMATOCRIT 39.2 % (35.0-45.0); HEMOGLOBIN 12.6 g/dl (12.0-16.0); LYMPHOCYTES # (AUTO) 1.1 X10'3 (1.1-4.8); LYMPHOCYTES % (AUTO) 9.2 % (21-51); MEAN CORPUSCULAR HGB CONC 32.2 g/dL (33.0-36.5); MEAN CORPUSCULAR VOLUME 90.1 FL (78-98); MEAN PLATELET VOLUME 7.2 FL (7.4-10.4); MONOCYTES # (AUTO) 0.9 X10'3 (0-0.9); NEUTROPHILS # (AUTO) 10.2 X10'3 (1.8-7.7); NEUTROPHILS % (AUTO) 82.2 % (42-75); PLATELET COUNT 511 X10'3 (140-440); RED BLOOD COUNT 4.35 X10'6 (4.20-5.60); RED CELL DISTRIBUTION WIDTH 16.2 % (11.5-14.5); WHITE BLOOD COUNT 12.4 X10'3 (4.5-11.0)
[2021-05-12 14:31] LABS: ALANINE AMINOTRANSFERASE 18 U/L (12-78); ALBUMIN 3.5 G/DL (3.4-5.0); ALKALINE PHOSPHATASE 93 IU/L (46-116); ANION GAP 5 (8-16); ASPARTATE AMINO TRANSFERASE 15 U/L (10-37); BILIRUBIN,TOTAL 0.5 MG/DL (0.1-1.0); BLOOD UREA NITROGEN 14 MG/DL (7-18); BUN/CREATININE RATIO 19.4 (6.6-38.0); CALCIUM 9.6 MG/DL (8.5-10.1); CHLORIDE 106 MMOL/L (99-107); CREATININE 0.72 MG/DL (0.40-0.90); GLUCOSE 112 MG/DL (70-104); POTASSIUM 3.8 MMOL/L (3.5-5.1); SODIUM 143 MMOL/L (135-145); TOTAL CARBON DIOXIDE 31.9 MMOL/L (24-32); TOTAL PROTEIN 7.1 G/DL (6.4-8.2); eGFR 79 ML/MIN
[2021-05-12] MEDS: normal saline 1000ml 1,000 ML IV SCH ×2 (15:50→23:59)
[2021-05-12] MEDS ORDERED: potassium Cl 40MEQ/1/2NS 520ml 520 ML IV PRN ×2 (15:50)
[2021-05-12] MEDS ORDERED: ondansetron/PF 4mg/2ml inj IV PRN (15:50)
[2021-05-12] MEDS ORDERED: mag hydrox/Alum hydrox/simeth 30ml oral suspension PO PRN (15:50)
[2021-05-12] MEDS ORDERED: morphine 2 MG/ML inj. syringe IV PRN (15:50)
[2021-05-12] MEDS ORDERED: magnesium hydroxide 30ml (MOM) UD suspension PO PRN (15:50)
[2021-05-12] MEDS ORDERED: acetaminophen 325mg tablet PO PRN (15:50)
[2021-05-12] MEDS ORDERED: potassium Cl 20 mEq SR tablet PO PRN ×2 (15:50)
[2021-05-12 16:19] LABS: C-REACTIVE PROTEIN 0.17 MG/DL (0.0-0.5)
--- NOTE | 2021-05-12 16:45 | NUR ---
SPOKE WITH DR. BENSON. PT MAY HAVE REGULAR DIET FOR DINNER, THEN NPO AFTER MN.
[2021-05-12] MEDS: morphine 2 MG/ML inj. syringe IV PRN ×2 (18:15→23:58)
--- NOTE | 2021-05-12 18:30 | NUR ---
ASSUMED CARE OF PT. PT LYING ON BED. ANXIOUS TO GET A BED UPSTAIRS. OTHERWISE NO COMPLAINTS AT PRESENT.
[2021-05-12 18:50] LABS: CLARITY,URINE Cloudy (Clear); COLOR,URINE YELLOW (Yellow); GLUCOSE, URINE NEGATIVE (Neg); KETONES,URINE NEGATIVE (Neg); LEUKOCYTE ESTERASE ,URINE NEGATIVE (Neg); NITRITES, URINE NEGATIVE (Neg); OCCULT BLOOD,URINE NEGATIVE (Neg); PROTEIN,URINE 30 mg/dl (Neg); UA COLLECTION TYPE FOLEY CATH; UROBILINOGEN,URINE 0.2 E.U/dL (0.2-1.0)
[2021-05-12 19:01] LABS: STARCH,URINE MODERATE /HPF (NEGATIVE)
[2021-05-12 19:02] LABS: BACTERIA,URINE FEW /HPF (Neg); RBC,URINE 0-2 /HPF (0-2); SQUAMOUS EPITHELIAL CELL,UR FEW /LPF (FEW); WBC,URINE 0-4 /HPF (0-4)
[2021-05-12 19:03] LABS: AMORPHOUS URATES 3+
[2021-05-12] MEDS: gabapentin 300mg capsule PO SCH (21:00)
[2021-05-12] MEDS: atorvastatin 20mg tablet PO SCH (21:00)
[2021-05-12] MEDS: K and/or MAG REPLACEMENT MC SCH (22:23)
[2021-05-12] MEDS: docusate sod 100mg capsule PO SCH (22:27)
--- NOTE | 2021-05-12 23:08 | NUR ---
Patient from ER. Pt was brought up to the floor by MD before report received. Haily DAVIS then called to give report there after pt was brought to floor. I and had the opportunity to ask questions and assume patient care.
[2021-05-13] VITALS: BP 136/108
--- NOTE | 2021-05-13 06:08 | NUR ---
Problems reprioritized. Patient report given, questions answered & plan of care reviewed with Liliana DAVIS.
[2021-05-13 06:17] LABS: BASOPHILS # (AUTO) 0.1 X10'3 (0-0.2); BASOPHILS % (AUTO) 0.8 % (0-1); EOSINOPHILS # (AUTO) 0.2 X10'3 (0-0.9); EOSINOPHILS % (AUTO) 2.5 % (0-6); HEMATOCRIT 34.1 % (35.0-45.0); HEMOGLOBIN 11.1 g/dl (12.0-16.0); LYMPHOCYTES # (AUTO) 1.6 X10'3 (1.1-4.8); MEAN CORPUSCULAR HEMOGLOBIN 29.1 PG (27.0-31.0); MEAN CORPUSCULAR HGB CONC 32.6 g/dL (33.0-36.5); MEAN CORPUSCULAR VOLUME 89.5 FL (78-98); MEAN PLATELET VOLUME 7.2 FL (7.4-10.4); MONOCYTES # (AUTO) 0.7 X10'3 (0-0.9); MONOCYTES % (AUTO) 9.7 % (2-12); NEUTROPHILS # (AUTO) 4.7 X10'3 (1.8-7.7); PLATELET COUNT 454 X10'3 (140-440); RED CELL DISTRIBUTION WIDTH 16.3 % (11.5-14.5); WHITE BLOOD COUNT 7.2 X10'3 (4.5-11.0)
--- NOTE | 2021-05-13 07:12 | NUR ---
/Patient in room [facility] 347. I have received report from New DAVIS and had the opportunity to ask questions and assume patient care.
[2021-05-13 07:35] LABS: ALANINE AMINOTRANSFERASE 11 U/L (12-78); ALBUMIN 2.8 G/DL (3.4-5.0); ALBUMIN/GLOBULIN RATIO 0.8 (1.1-1.5); ALKALINE PHOSPHATASE 81 IU/L (46-116); ANION GAP 7 (8-16); ASPARTATE AMINO TRANSFERASE 16 U/L (10-37); BILIRUBIN,TOTAL 0.4 MG/DL (0.1-1.0); BLOOD UREA NITROGEN 9 MG/DL (7-18); BUN/CREATININE RATIO 13.8 (6.6-38.0); CALCIUM 8.9 MG/DL (8.5-10.1); CHLORIDE 108 MMOL/L (99-107); CREATININE 0.65 MG/DL (0.40-0.90); GLUCOSE 106 MG/DL (70-104); POTASSIUM 3.9 MMOL/L (3.5-5.1); SODIUM 143 MMOL/L (135-145); TOTAL CARBON DIOXIDE 27.8 MMOL/L (24-32); TOTAL PROTEIN 6.1 G/DL (6.4-8.2); eGFR 89 ML/MIN
[2021-05-13] MEDS: HYDROcodone/acetaminophen 5mg/325mg tablet PO PRN ×3 (07:42→21:30)
[2021-05-13] MEDS: duloxetine 30mg CAPSULE.DR PO SCH (07:43)
[2021-05-13] MEDS: docusate sod 100mg capsule PO SCH ×2 (07:44→20:00)
[2021-05-13] MEDS: levoTHYROXINE 25mcg tablet PO SCH (07:44)
[2021-05-13 08:00] VITALS: BP 182/102
[2021-05-13] MEDS: K and/or MAG REPLACEMENT MC SCH ×2 (08:00→20:00)
--- NOTE | 2021-05-13 09:47 | NUR ---
PAGER ID: [phone] MESSAGE: Liliana winn [phone] RE; [facility] 180/102, current BP 155/103. pt scheduled for surgery at 1530. thank you
[2021-05-13 11:04] VITALS: BP 156/90
[2021-05-13 14:13] VITALS: BP 167/113
[2021-05-13] MEDS: hydrALAZINE 20mg/ml inj. IV SCH ×2 (14:54→20:15)
[2021-05-13] MEDS: normal saline 1000ml 1,000 ML IV SCH (15:23)
[2021-05-13 18:00] VITALS: BP 136/89
--- NOTE | 2021-05-13 18:30 | NUR ---
Patient in room [facility] 347. I have received report from Liliana Michaud and had the opportunity to ask questions and assume patient care.
--- NOTE | 2021-05-13 18:44 | NUR ---
Problems reprioritized. Patient report given, questions answered & plan of care reviewed with malu winn.
[2021-05-13] MEDS: atorvastatin 20mg tablet PO SCH (20:17)
[2021-05-13] MEDS: gabapentin 300mg capsule PO SCH (20:18)
[2021-05-14] VITALS (21 sets, daily range): BP systolic 86–170; BP diastolic 40–101
[2021-05-14] MEDS: hydrALAZINE 20mg/ml inj. IV SCH ×4 (01:43→21:32)
[2021-05-14] MEDS: HYDROcodone/acetaminophen 5mg/325mg tablet PO PRN ×5 (01:45→22:20)
--- NOTE | 2021-05-14 06:30 | NUR ---
Problems reprioritized. Patient report given, questions answered & plan of care reviewed with Liliana DAVIS.
--- NOTE | 2021-05-14 06:41 | NUR ---
Patient in room [facility] 347. I have received report from malu winn and had the opportunity to ask questions and assume patient care.
[2021-05-14] MEDS: duloxetine 30mg CAPSULE.DR PO SCH (07:17)
[2021-05-14] MEDS: levoTHYROXINE 25mcg tablet PO SCH (07:17)
[2021-05-14] MEDS: normal saline 1000ml 1,000 ML IV SCH (07:19)
[2021-05-14] MEDS: docusate sod 100mg capsule PO SCH ×2 (07:19→21:10)
[2021-05-14] MEDS: K and/or MAG REPLACEMENT MC SCH ×2 (08:00→20:00)
[2021-05-14 08:19] LABS: BASOPHILS # (AUTO) 0.1 X10'3 (0-0.2); EOSINOPHILS # (AUTO) 0.2 X10'3 (0-0.9); EOSINOPHILS % (AUTO) 2.4 % (0-6); HEMATOCRIT 35.2 % (35.0-45.0); HEMOGLOBIN 11.5 g/dl (12.0-16.0); LYMPHOCYTES # (AUTO) 1.1 X10'3 (1.1-4.8); LYMPHOCYTES % (AUTO) 16.6 % (21-51); MEAN CORPUSCULAR HEMOGLOBIN 29.2 PG (27.0-31.0); MEAN CORPUSCULAR HGB CONC 32.6 g/dL (33.0-36.5); MEAN CORPUSCULAR VOLUME 89.7 FL (78-98); MEAN PLATELET VOLUME 7.5 FL (7.4-10.4); MONOCYTES # (AUTO) 0.6 X10'3 (0-0.9); NEUTROPHILS # (AUTO) 4.7 X10'3 (1.8-7.7); PLATELET COUNT 447 X10'3 (140-440); RED BLOOD COUNT 3.93 X10'6 (4.20-5.60); RED CELL DISTRIBUTION WIDTH 16.4 % (11.5-14.5); WHITE BLOOD COUNT 6.6 X10'3 (4.5-11.0)
[2021-05-14 08:47] LABS: ALANINE AMINOTRANSFERASE 12 U/L (12-78); ALBUMIN 2.8 G/DL (3.4-5.0); ALBUMIN/GLOBULIN RATIO 0.8 (1.1-1.5); ALKALINE PHOSPHATASE 70 IU/L (46-116); ANION GAP 8 (8-16); ASPARTATE AMINO TRANSFERASE 15 U/L (10-37); BILIRUBIN,TOTAL 0.4 MG/DL (0.1-1.0); BLOOD UREA NITROGEN 10 MG/DL (7-18); BUN/CREATININE RATIO 15.6 (6.6-38.0); CALCIUM 8.3 MG/DL (8.5-10.1); CHLORIDE 110 MMOL/L (99-107); CREATININE 0.64 MG/DL (0.40-0.90); GLUCOSE 94 MG/DL (70-104); SODIUM 145 MMOL/L (135-145); TOTAL CARBON DIOXIDE 27.2 MMOL/L (24-32); TOTAL PROTEIN 6.1 G/DL (6.4-8.2); eGFR > 90 ML/MIN
[2021-05-14] MEDS ORDERED: morphine 4 MG/ML inj SYRINge IV PRN (10:45)
[2021-05-14] MEDS ORDERED: ondansetron/PF 4mg/2ml inj IV PRN (10:45)
[2021-05-14] MEDS ORDERED: proCHLORperazine 10 MG/2 ml inj IV PRN (10:45)
[2021-05-14] MEDS ORDERED: ringers solution, lacted 1,000 ML IV SCH (10:45)
[2021-05-14] MEDS ORDERED: morphine 2 MG/ML inj. syringe IV PRN (10:45)
[2021-05-14] MEDS ORDERED: meperidine/PF 25mg/ml syringe IV PRN ×3 (10:45)
--- NOTE | 2021-05-14 11:12 | NUR ---
called and gave report to Paul DAVIS in Recovery
[2021-05-14] MEDS ORDERED: epiNEPHrine 1 mg/ml inj ONE (12:37)
[2021-05-14] MEDS ORDERED: ketorolac trometh. 30mg/ml inj. ONE (12:37)
[2021-05-14] MEDS ORDERED: tranexamic acid 100mg/ml inj. ONE (12:37)
[2021-05-14] MEDS ORDERED: ROPIVAcaine 0.5% (5mg/ml) 30ml vial ONE ×2 (12:38→13:31)
[2021-05-14] MEDS ORDERED: cloNIDine hcl/PF 100mcg/ml inj ONE (12:38)
[2021-05-14] MEDS ORDERED: vancomycin 1,000mg inj ONE (12:38)
[2021-05-14] MEDS ORDERED: neostigmine methylsulfate 1 MG/ML 10ml vial ONE (12:47)
[2021-05-14] MEDS ORDERED: fentaNYL/PF 50MCG/1 ML 2ML syringe ONE (12:52)
[2021-05-14] MEDS ORDERED: midazolam 1 mg/ML 2ml injection ONE (12:56)
[2021-05-14] MEDS ORDERED: ceFAZolin 1000mg inj ONE ×2 (13:34)
[2021-05-14] MEDS ORDERED: phenylephrine 10mg/ml inj. ONE (13:34)
[2021-05-14] MEDS ORDERED: albumin (Human) 5% 250ml 250 ML IV ONE (13:34)
[2021-05-14] MEDS ORDERED: LIDOcaine 1%/PF 5ML 10 MG/ML VIAL ONE (14:14)
--- NOTE | 2021-05-14 14:25 | NUR ---
Received from OR via BED IN STABLE CONDITION , accompanied by Anesthesiologist and MEATCUTTER report given by MEATCUTTER AND Anesthesiolgist. Addendum: 05/14/21 at 1454 by Minerva Leslie RN Amended: Links added.
--- NOTE | 2021-05-14 14:25 | NUR ---
DERMATOME LEVEL L1
--- NOTE | 2021-05-14 14:25 | NUR ---
DERMATOME LEVEL L1 Addendum: 05/14/21 at 1519 by Minerva Leslie RN Amended: Links added.
[2021-05-14] MEDS ORDERED: acetaminophen 1,000mg/100ml IV 100 ML IV ONE (14:26)
[2021-05-14] MEDS: morphine 2 MG/ML inj. syringe IV PRN (15:16)
--- NOTE | 2021-05-14 15:35 | NUR ---
PATIENT DISCHARGED FROM PACU IN STABLE CONDITION AFTER REPORT GIVEN TO RN TAKING OVER PATIENTS CARE. DERMATOME LEVELL3. PATIENT TRANSFERRED VIA BED TO ROOM 347A WITH KEN FRANCO AT BEDSIDE. Addendum: 05/14/21 at 1545 by Minerva Leslie RN Amended: Links added.
[2021-05-14] MEDS ORDERED: ketorolac tromethamine 15mg/ml inj. IV PRN (18:50)
--- NOTE | 2021-05-14 18:52 | NUR ---
Problems reprioritized. Patient report given, questions answered & plan of care reviewed with soto winn.
[2021-05-14] MEDS ORDERED: enoxaparin 40mg/0.4ml syringe SUBCUT SCH (20:00)
[2021-05-14] MEDS: acetaminophen 1,000mg/100ml IV 100 ML IV SCH ×2 (20:00→21:31)
[2021-05-14] MEDS: gabapentin 300mg capsule PO SCH (21:10)
[2021-05-14] MEDS: atorvastatin 20mg tablet PO SCH (21:11)
--- NOTE | 2021-05-14 22:09 | NUR ---
called dr calhoun to clarify lovenox order . instructed to hold lovenox tonight and start tomorrow
[2021-05-15] VITALS: BP 134/64
[2021-05-15] MEDS: ceFAZolin/D5W- 1GM premix 50 ML IV SCH ×2 (00:46→08:27)
[2021-05-15] MEDS: normal saline 1000ml 1,000 ML IV SCH (00:59)
[2021-05-15] MEDS: hydrALAZINE 20mg/ml inj. IV SCH ×2 (01:01→08:00)
[2021-05-15] MEDS: acetaminophen 1,000mg/100ml IV 100 ML IV SCH ×2 (02:00→08:29)
[2021-05-15] MEDS: HYDROcodone/acetaminophen 5mg/325mg tablet PO PRN ×2 (05:47→10:02)
--- NOTE | 2021-05-15 06:45 | NUR ---
Patient in room [facility] 347. I have received report from jaden winn and had the opportunity to ask questions and assume patient care.
[2021-05-15 07:17] LABS: BASOPHILS # (AUTO) 0.1 X10'3 (0-0.2); BASOPHILS % (AUTO) 0.7 % (0-1); EOSINOPHILS # (AUTO) 0.2 X10'3 (0-0.9); EOSINOPHILS % (AUTO) 2.1 % (0-6); HEMATOCRIT 31.1 % (35.0-45.0); HEMOGLOBIN 10.3 g/dl (12.0-16.0); LYMPHOCYTES # (AUTO) 0.6 X10'3 (1.1-4.8); LYMPHOCYTES % (AUTO) 6.8 % (21-51); MEAN CORPUSCULAR HEMOGLOBIN 29.1 PG (27.0-31.0); MEAN CORPUSCULAR VOLUME 88.2 FL (78-98); MEAN PLATELET VOLUME 7.5 FL (7.4-10.4); MONOCYTES # (AUTO) 0.8 X10'3 (0-0.9); MONOCYTES % (AUTO) 9.2 % (2-12); NEUTROPHILS % (AUTO) 81.2 % (42-75); PLATELET COUNT 481 X10'3 (140-440); RED BLOOD COUNT 3.53 X10'6 (4.20-5.60); WHITE BLOOD COUNT 8.6 X10'3 (4.5-11.0)
[2021-05-15 07:20] LABS: BILIRUBIN,TOTAL 0.5 MG/DL (0.1-1.0); BLOOD UREA NITROGEN 8 MG/DL (7-18); BUN/CREATININE RATIO 12.5 (6.6-38.0); CHLORIDE 108 MMOL/L (99-107); CREATININE 0.64 MG/DL (0.40-0.90); GLUCOSE 114 MG/DL (70-104); POTASSIUM 3.7 MMOL/L (3.5-5.1); SODIUM 143 MMOL/L (135-145); eGFR > 90 ML/MIN
[2021-05-15 07:25] LABS: ALANINE AMINOTRANSFERASE 14 U/L (12-78); ALBUMIN 2.7 G/DL (3.4-5.0); ALBUMIN/GLOBULIN RATIO 0.9 (1.1-1.5); ALKALINE PHOSPHATASE 64 IU/L (46-116); ANION GAP 8 (8-16); ASPARTATE AMINO TRANSFERASE 24 U/L (10-37); TOTAL PROTEIN 5.6 G/DL (6.4-8.2)
[2021-05-15 08:00] VITALS: BP 125/86
[2021-05-15] MEDS: K and/or MAG REPLACEMENT MC SCH (08:00)
[2021-05-15] MEDS: docusate sod 100mg capsule PO SCH (08:29)
[2021-05-15] MEDS: duloxetine 30mg CAPSULE.DR PO SCH (08:30)
[2021-05-15] MEDS: levoTHYROXINE 25mcg tablet PO SCH (08:30)
[2021-05-15 11:00] VITALS: BP 143/78
--- NOTE | 2021-05-15 13:03 | NUR ---
Patient discharged in stable condition to home with . Pt educated on post op hip precautions and follow up with Dr. Rivera. Iv removed, tip intact no complications. Belongings sent with pt.
== END 2021-05-15 12:59 | disposition home health service (06) | DRG 467 ==
LOC: ER 11:30 → ED HOLD 15:51 → SUR 3N 22:50
PROVIDERS: ADMIT Internal Medicine; ATTEND Internal Medicine
PROC: 0SRS0J9 Replacement of Left Hip Joint, Femoral Surface with Synthetic Substitute, Cemented, Open Approach (ICD-10-PCS; 2021-05-14)
PROC: 0SPB09Z Removal of Liner from Left Hip Joint, Open Approach (ICD-10-PCS; 2021-05-14)
PROC: 0SPS0JZ Removal of Synthetic Substitute from Left Hip Joint, Femoral Surface, Open Approach (ICD-10-PCS; 2021-05-14)
PROC: 0SUS09Z Supplement Left Hip Joint, Femoral Surface with Liner, Open Approach (ICD-10-PCS; 2021-05-14)
PROC: 0QS704Z Reposition Left Upper Femur with Internal Fixation Device, Open Approach (ICD-10-PCS; principal; 2021-05-14 12:47)
DX: M97.02XA Periprosthetic fracture around internal prosthetic left hip joint, initial encounter (principal); S72.002K Fracture of unspecified part of neck of left femur, subsequent encounter for closed fracture with nonunion; E03.9 Hypothyroidism, unspecified; M16.12 Unilateral primary osteoarthritis, left hip; M85.80 Other specified disorders of bone density and structure, unspecified site; E78.5 Hyperlipidemia, unspecified; I10 Essential (primary) hypertension; J44.9 Chronic obstructive pulmonary disease, unspecified; G47.30 Sleep apnea, unspecified; Z96.642 Presence of left artificial hip joint; F32.A Depression, unspecified; R29.6 Repeated falls; Z87.891 Personal history of nicotine dependence; Z79.899 Other long term (current) drug therapy
CPT/HCPCS: 36415; 71045; 72170; 80053; 81001; 82948; 85025; 85610; 85651; 86140; 86885; 86900; 86901; 87081; 87635; 93005; 96374; 97110; 97116; 97161; 97530; 99285; A7000; A9272; C1776; G0378; J0131; J0171; J0360; J0690; J0735; J1885; J2250; J2270; J2370; J2710; J2795; J3010; J3370; J7030; J7120; P9045